=== PATIENT | male | born 1945 | race Two or more races ===

== ENCOUNTER 2024-10-24 00:54 | Emergency (ER) | payer MEDICARE, MEDICAID, SELFPAY ==
[2024-10-24 00:57] VITALS: BP 125/69; PULSE 95; RESP 18; TEMP 36.7; O2SAT 95
[2024-10-24 00:58] VITALS: PULSE 59; O2SAT 95; BMI 27.8
[2024-10-24 00:59] VITALS: BMI 28.0
--- NOTE | 2024-10-24 01:14 | PD.EDURI ---
Upper Respiratory Inf. RME/HPI General Chief Complaint: Flu Like Symptoms Stated Complaint: COUGH Time Seen by Provider: 10/24/24 01:10 Arrival date/time: 10/24/24 00:54 Mode of arrival: EMS RME / HPI RME / HPI Narrative: DR. MCKEON MAIN ED EVALUATION: 79 y/o male with Hx of Dementia and Parkinson's Disease RAMONITA from home presents to ED c/o worsening productive cough x 3 days. believed patient was choking in his sleep as he was coughing and clenching his mouth shut. Patient denies chest pain and cough. Per daughter, patient will always respond with no . No other concerns or complaints expressed at this time. Related Data Home Medications ?Medication ?Instructions ?Recorded ?Confirmed atorvastatin 40 mg tablet 40 mg PO QDAY 05/08/18 05/29/22 levothyroxine 25 mcg tablet 25 mcg PO QDAY 05/08/18 05/29/22 aspirin 81 mg tablet,delayed 81 mg PO QDAY 04/10/22 05/29/22 release carbidopa 25 mg-levodopa 100 mg 1 tab PO TID 04/10/22 05/29/22 tablet dutasteride 0.5 mg capsule 0.5 mg PO QDAY 04/10/22 05/29/22 entacapone 200 mg tablet 200 mg PO TID 04/10/22 05/29/22 furosemide 40 mg tablet 40 mg PO QDAY 04/10/22 05/29/22 lisinopril 20 mg tablet 20 mg PO QDAY 04/10/22 05/29/22 ascorbic acid (vitamin C) 500 mg 500 mg PO BID 05/29/22 05/29/22 tablet bisacodyl 10 mg rectal suppository 10 mg VT QDAY PRN Constipation 05/29/22 05/29/22 (Dulcolax (bisacodyl)) guaifenesin 200 mg tablet 200 mg PO QDAY 05/29/22 05/29/22 insulin glargine 100 unit/mL 10 unit subcut HS 05/29/22 05/29/22 subcutaneous solution insulin lispro 100 unit/mL 1 sliding scale dose subcut 05/29/22 05/29/22 subcutaneous solution (Humalog USEASDIRECTD U-100 Insulin) magnesium hydroxide 400 mg/5 mL 30 ml PO Q72H PRN bm 05/29/22 05/29/22 oral suspension (Milk of Magnesia) multivitamin with minerals 1 cap PO QDAY 05/29/22 05/29/22 pramipexole 0.5 mg tablet (Mirapex) 0.5 mg PO TID 05/29/22 05/29/22 sodium phosphates 19 gram-7 118 ml VT QDAY PRN Constipation 05/29/22 05/29/22 gram/118 mL enema (Fleet Enema) Previous Rx's ?Medication ?Instructions ?Recorded apixaban 5 mg (74 tabs) tablets in 5 mg PO BID #74 tabs 04/13/22 a dose pack (Wan Shidao management DVT-PE Treat 30D Start) doxycycline hyclate 100 mg capsule 100 mg PO BID #10 caps 06/03/22 Allergies Allergy/AdvReac Type Severity Reaction Status Date / Time No Known Allergies Allergy Verified 05/08/18 14:21 Review of Systems Review of Systems Systems Reviewed: All systems reviewed, normal except as documented Past Medical History Past Medical History NEUROLOGIC: Positive Dementia and Parkinson's Disease CARDIAC: Positive Cardiac Disorders, Angina, Hypercholesterolemia and Hypertension GENITOURINARY: Positive Benign Prostatic Hyperplasia MUSCULOSKELETAL: Positive Musculoskeletal Disorders, Arthritis and Fractures ENDOCRINE: Positive Hypothyroidism PSYCHO/SOCIAL: Positive Anxiety Surgical History SURGICAL: Positive Angiogram Social History SMOKING STATUS: Former smoker ED Exam Narrative Physical exam: Generally patient is alert and in no obvious distress, heart bradycardic rate with regular rhythm, lungs clear to auscultation and equal bilaterally, abdomen soft nondistended nontender, extremities no edema, neurologic exam no focal motor deficits and the patient is slightly confused which is normal for the patient. Course Course Course Narrative: CXR is ordered for determining the etiology of shortness of breath. Quality Measures none Orders Category Date Time Status EKG (ED ONLY) *Do not use* NOW Care 10/24/24 01:22 Active EKG (ED Only) Stat Exams 10/24/24 01:22 Draft XR chest 1V portable Stat Exams 10/24/24 01:22 Taken CBC Stat Lab 10/24/24 01:30 Completed CMP [Comprehensive Metabolic Panel] Stat Lab 10/24/24 01:30 Completed Vital Signs Vital signs: Vital Signs Temperature 98.0 F 10/24/24 00:57 Pulse Rate 95 10/24/24 00:57 Respiratory Rate 18 10/24/24 00:57 Blood Pressure 125/69 10/24/24 00:57 Pulse Oximetry (%) 95 10/24/24 00:57 Oxygen Delivery Method Room Air 10/24/24 00:57 Upper Respiratory Infection MDM Narrative MDM Narrative:: Scribe Attestation: I, Cuca Jacobo, am scribing for and in the presence of Dr. Mckeon. Provider Notation: Although this document has been carefully reviewed, there may still be some phonetic and other typographical errors.? These errors are purely grammatical due to imperfections in the software program and should not be construed in any way to? compromise the substance of the patient's medical care during this visit. EKG is nonischemic. Lab work is unremarkable which I interpreted. Chest x-ray is clear. Patient's vital signs are stable. Patient is in no respiratory distress. Patient will be discharged in stable condition. Patient data External records reviewed:: [facility] previous records (Reviewed prior ED records from 05/27/22. Patient was seen for YISSEL (acute kidney injury).) and EMS form Clinical information provided by:: EMS, family (Daughter) and spouse () Social determinants that could affect healthcare access:: none Patient has the following chronic illnesses:: Parkinson's disease How is presenting disease/condition affected by chronic disease/condition?: exacerbated by Evaluation data The following diagnostics were reviewed and interpreted by me:: lab results, radiology exam(s) and EKG tracing(s) Lab and/or radiology exams considered but not ordered:: None Interpretation Summary: RADIOLOGY Chest X-Ray: Medications / Prescriptions Medications or Prescriptions considered but not ordered:: None Medication administrations:: See above Consultations Consultation(s) initiated? (list below): No Diagnosis Upper Respiratory Differential Diagnosis: upper respiratory infection, viral infection, bronchitis, influenza and pharyngitis Most likely diagnosis given after review of the tests above:: Choking episode Admission Indicated Admission indicated?: not indicated Admission Request Was there a request for admission?: No Disposition Plan Disposition Plan: Discharge Discharge Attestation Discharge Attestation: The patient and all family members were given an opportunity to ask questions and understood the discharge instructions. Discharge instructions specifically effects, indications for sooner follow up or return to the emergency department, and the expected course of current diagnosis. Patient condition: Stable Discharge Plan Plan Patient Disposition: HOME (Self Care) Prescriptions/Referrals Prescriptions/Med Rec: No Action atorvastatin 40 mg Tablet 40 mg PO QDAY levothyroxine 25 mcg Tablet 25 mcg PO QDAY furosemide 40 mg Tablet 40 mg PO QDAY lisinopril 20 mg Tablet 20 mg PO QDAY aspirin 81 mg Tablet,Delayed Release (Dr/Ec) 81 mg PO QDAY entacapone 200 mg Tablet 200 mg PO TID Rx Instructions: administer at the same time as l-dopa/carbidopa dose carbidopa-levodopa 25-100 mg Tablet 1 tab PO TID dutasteride 0.5 mg Capsule 0.5 mg PO QDAY Eliquis DVT-PE Treat 30D Start 5 mg (74 tabs) tablets,dose pack 5 mg PO BID Qty: 74 0RF Rx Instructions: 10 mg BID for 7 days,then 5 mg BID for 3 months for DVT. Repeat U/S, follow physician orders after guaifenesin 200 mg Tablet 200 mg PO QDAY ascorbic acid (vitamin C) 500 mg Tablet 500 mg PO BID bisacodyl [Dulcolax (bisacodyl)] 10 mg Suppository 10 mg VT QDAY PRN (Reason: Constipation) Fleet Enema 19-7 gram/118 mL Enema 118 ml VT QDAY PRN (Reason: Constipation) Rx Instructions: IF DULCOLAX IS NOT EFFECTIVE insulin glargine 100 unit/mL Solution 10 unit SUBCUT HS pramipexole [Mirapex] 0.5 mg Tablet 0.5 mg PO TID magnesium hydroxide [Milk of Magnesia] 400 mg/5 mL Suspension 30 ml PO Q72H PRN (Reason: bm) insulin lispro [Humalog U-100 Insulin] 100 unit/mL Solution 1 sliding scale dose SUBCUT USEASDIRECTD multivitamin with minerals Capsule 1 cap PO QDAY doxycycline hyclate 100 mg capsule 100 mg PO BID Qty: 10 0RF Problem List Clinical Impression: Choking episode Patient/Caregiver Discharge Instructions Additional Instructions: Chest x-ray is clear. No evidence for pneumonia. Patient is stable for discharge to follow-up with primary care as needed. Print Language: Sinhala Stand Alone Forms: Jen Award Info., Patient Portal Info Letter
--- NOTE | 2024-10-24 01:22 | EKG_ITS ---
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
--- NOTE | 2024-10-24 01:22 | XR_ITS ---
Examination: AP chest single view Technique one AP portable semiupright chest single view Date and time: October 24, 2024 0159 hours Comparison May 29, 2022 INDICATIONS: Chest pain shortness of breath today FINDINGS: Normal heart size Ectatic thoracic aorta No pulmonary edema or pneumonia IMPRESSION: No active disease
[2024-10-24 01:44] LABS: Basophils # (Auto) 0.0 Thou/mm3 (0.0-0.2); Basophils % (Auto) 1 % (0-2.5); Eosinophils # (Auto) 0.3 Thou/mm3 (0.0-0.5); Eosinophils % (Auto) 5 % (0-10); Hematocrit 35.6 % (41.0-53.0); Hemoglobin 11.6 g/dL (13.5-16.0); Immature Granulocytes Auto 0.01 Thou/mm3 (0.00-0.00); Lymphocytes # (Auto) 1.9 Thou/mm3 (1.0-4.8); Lymphocytes % (Auto) 37 % (10-50); Mean Corpuscular HGB Conc 32.6 g/dl (31.0-37.0); Mean Corpuscular Hemoglobin 29.8 pg (25.0-35.0); Mean Corpuscular Volume 92 fL (80-100); Monocytes # (Auto) 0.5 Thou/mm3 (0.0-0.8); Monocytes % (Auto) 9 % (0-12); Neutrophils # (Auto) 2.5 Thou/mm3 (1.8-7.7); Neutrophils % (Auto) 48 % (37-80); Nucleated Red Blood Cell # 0.00 Thou/mm3 (0.00-0.00); Nucleated Red Blood Cell % 0 /100 WBC (0); Platelet Count 181 Thou/mm3 (140-440); RDW Standard Deviation 46.3 fL (35.1-43.9); Red Blood Count 3.89 Miln/mm3 (4.50-5.90); White Blood Count 5.2 Thou/mm3 (3.8-10.6)
[2024-10-24 02:12] LABS: Alanine Aminotransferase < 7 U/L (10-49); Albumin, Serum 3.7 gm/dL (3.4-4.8); Albumin/Globulin Ratio 1.4 (1.2-2.2); Alkaline Phosphatase 76 U/L (46-116); Anion Gap 4 (7-16); Aspartate Amino Transferase 15 U/L (0-34); BUN/Creatinine Ratio 12 Ratio (12-20); Bilirubin,Total 0.6 mg/dL (0.3-1.2); Blood Urea Nitrogen 11 mg/dL (9-23); Calcium 9.1 mg/dL (8.3-10.6); Calcium (Corrected) 9.3 mg/dL (8.5-10.1); Carbon Dioxide 26.8 mMol/L (20.0-31.0); Chloride 111 mMol/L (98-107); Creatinine (Component) 0.9 mg/dL (0.6-1.3); Estimated Creatinine Clearance 72.4 mL/min (>60); Globulin 2.7 gm/dL (2.3-3.5); Glucose 175 mg/dL (74-106); Osmolality,Calculated 286 (275-295); Potassium 3.7 mMol/L (3.4-5.1); Sodium 142 mMol/L (136-145); Total Protein 6.4 gm/dL (5.7-8.2); eGFR > 60 See Note
[2024-10-24 02:18] VITALS: BP 140/67; PULSE 98; RESP 19; TEMP 36.6; O2SAT 98
[2024-10-24 03:43] VITALS: BP 152/76; PULSE 53; RESP 18; TEMP 36.4; O2SAT 98
== END 2024-10-24 04:14 | disposition home or self-care (01) ==
LOC: SERX 02:17
PROVIDERS: Emergency Provider Emergency Medicine
DX: R09.89 Other specified symptoms and signs involving the circulatory and respiratory systems (principal); R05.9 Cough, unspecified; G20.A1 Parkinson's disease without dyskinesia, without mention of fluctuations; F02.80 Dementia in other diseases classified elsewhere, unspecified severity, without behavioral disturbance, psychotic disturbance, mood disturbance, and anxiety
CPT/HCPCS: 36415; 71045; 80053; 85025; 93005; 99283